=== PATIENT | female | born 1960 ===

== ENCOUNTER 2018-03-15 11:46 | Inpatient (IN) | payer OTHER ==
[2018-03-15] MEDS ORDERED: NALOXONE HYDROCHLORIDE 0.4 MG/ML SOL ONE (11:54)
[2018-03-15] MEDS ORDERED: SODIUM CHLORIDE 0.9% FLUSH 10 ML SOL IV PRN (11:56)
[2018-03-15 12:11] LABS: BASOPHILS % (AUTO) 2 % (0-3); EOSINOPHILS % (AUTO) 2 % (0-9); HEMATOCRIT 44 % (35-47); HEMOGLOBIN 14.5 gm/dl (12.0-15.5); MEAN CORPUSCULAR HEMOGLOBIN 30.7 pg (27.0-32.0); MEAN CORPUSCULAR VOLUME 93 fL (81-99); MONOCYTES % (AUTO) 12.3 % (0-12); NEUTROPHILS % (AUTO) 58.8 % (37-80)
[2018-03-15 12:23] LABS: INR 0.93 (0.86-1.12)
[2018-03-15 12:30] LABS: ALBUMIN 2.6 gm/dl (3.4-5.0); ALKALINE PHOSPHATASE 267 IU/L (46-116); ALT 270 IU/L (14-63); AST 216 IU/L (15-37); BILIRUBIN,DIRECT 0.5 mg/dl (0.0-0.2); BILIRUBIN,TOTAL 1.1 mg/dl (0.2-1.0); BLOOD UREA NITROGEN 15 mg/dl (7-18); CALCIUM 9.6 mg/dl (8.5-10.1); CARBON DIOXIDE 21.8 mEq/L (21-32); CHLORIDE 110 mMol/L (98-107); CREATININE 0.94 mg/dl (0.60-1.00); GLUCOSE 289 mg/dl (74-106); POTASSIUM 4.5 mMol/L (3.5-5.1); SODIUM 143 mMol/L (136-145); TOTAL PROTEIN 7.2 gm/dl (6.4-8.2); TROP I < 0.017 ng/ml (0.000-0.056)
[2018-03-15 12:32] LABS: AMMONIA 179 umol/L (11-32)
[2018-03-15 12:53] LABS: APPEARANCE,URINE Cloudy; BILIRUBIN,URINE NEGATIVE (NEGATIVE); COLOR,URINE Yellow; GLUCOSE, URINE (UA) NEGATIVE (NEGATIVE); KETONES,URINE NEGATIVE (NEGATIVE); LEUKOCYTE ESTERASE ,URINE 2+ (NEGATIVE); NITRATE,URINE NEGATIVE (NEGATIVE); OCCULT BLOOD,URINE NEGATIVE (NEG-TRACE); PH,URINE 7.5
[2018-03-15 13:03] LABS: AMPHETAMINES NEGATIVE (NEGATIVE); BACTERIA 3+ (< 1+); BARBITUATES NEGATIVE (NEGATIVE); BENZODIAZEPINES NEGATIVE (NEGATIVE); CANNABINOL(THC) NEGATIVE (NEGATIVE); COCAINE(COC) NEGATIVE (NEGATIVE); CRYSTALS NEGATIVE (0-3 AVE/HPF); METHADONE NEGATIVE (NEGATIVE); METHAMPHETAMINES NEGATIVE (NEGATIVE); OPIATES(OPI) NEGATIVE (NEGATIVE); OXYCODONE(OXY) NEGATIVE (NEGATIVE); PROPOXYPHENE(PPX) NEGATIVE (NEGATIVE); RBC,URINE 0-3 (0-3AV/HPF); TRICYCLIC ANTIDEPRESSANTS NEGATIVE (NEGATIVE); WBC,URINE 15-20 (0-5AV/HPF)
[2018-03-15] MEDS ORDERED: CEFTRIAXONE 1 GM PDS 1 GM in SODIUM CHLORIDE 0.9% 50 ML 50 ML IV ONE (13:11)
[2018-03-15] MEDS ORDERED: LACTULOSE 10 GM/15 ML SOL ONE (13:12)
[2018-03-15] MEDS ORDERED: CEFTRIAXONE 1 GM PDS ONE (14:00)
[2018-03-15] MEDS ORDERED: SODIUM CHLORIDE 0.9% 50 ML 50 ML IV ONE (14:02)
[2018-03-15] MEDS ORDERED: DEXTROSE PO PRN (14:17)
[2018-03-15] MEDS ORDERED: NOVOLOG FLEXPEN SC PRN (14:17)
[2018-03-15] MEDS ORDERED: ALUMINUM/MAGNESIUM 30 ML SUS PO PRN (14:17)
[2018-03-15] MEDS ORDERED: ALBUTEROL HFA 60 PUFF/INHALER INH PRN (14:17)
[2018-03-15] MEDS ORDERED: [UNRECOGNIZED DRUG - OTHER] PO PRN (14:17)
[2018-03-15] MEDS ORDERED: PATIENT EDUCATION 1 MISC PRN (14:22)
[2018-03-15] MEDS: LACTATED RINGERS 1,000 ML IV SCH (14:40)
[2018-03-15] MEDS ORDERED: INSULIN GLARGINE, RECOMBINAN 100 U/ML SOL SC SCH ×2 (16:00→20:00)
[2018-03-15] MEDS: ACETAMINOPHEN 500 MG 500 MG TAB PO PRN (16:42)
[2018-03-15] MEDS: ENOXAPARIN 30 MG SOL SC SCH (18:31)
[2018-03-15] MEDS: FERROUS GLUCONATE 324 MG TABLET PO SCH (20:47)
[2018-03-15] MEDS: MAGNESIUM OXIDE 400 MG TAB PO SCH (20:47)
[2018-03-15] MEDS: MIRTAZAPINE 15 MG TAB PO SCH (20:48)
[2018-03-15] MEDS ORDERED: FERROUS SULFATE 325 MG PO SCH (21:00)
[2018-03-15] MEDS ORDERED: LACTULOSE 10 GM/15 ML SOL PO SCH (21:00)
[2018-03-15] MEDS: LACTULOSE 10 GM/15 ML SOL PO SCH ×2 (21:34→22:01)
[2018-03-15] MEDS: RIFAXIMIN 550 MG TAB PO SCH (21:59)
[2018-03-15] MEDS: PROPRANOLOL HYDROCHLORIDE 20 MG TAB PO SCH (21:59)
[2018-03-15] MEDS ORDERED: KETOROLAC TROMETHAMINE 30 MG/ML SOL IV PRN (23:14)
[2018-03-16] MEDS: LACTATED RINGERS 1,000 ML IV SCH ×3 (00:41→20:49)
[2018-03-16] MEDS: ENOXAPARIN 30 MG SOL SC SCH ×2 (06:35→17:18)
[2018-03-16] MEDS ORDERED: OMEPRAZOLE 20 MG CAPSULE PO SCH (07:00)
[2018-03-16] MEDS ORDERED: CIPROFLOXACIN HCL 500 MG TAB PO SCH (07:15)
[2018-03-16 07:23] LABS: BASOPHILS % (AUTO) 2 % (0-3); EOSINOPHILS % (AUTO) 2 % (0-9); HEMATOCRIT 41 % (35-47); HEMOGLOBIN 13.5 gm/dl (12.0-15.5); MEAN CORPUSCULAR HEMOGLOBIN 30.8 pg (27.0-32.0); MEAN CORPUSCULAR HGB CONC 33.1 gm/dl (32.0-36.0); MEAN CORPUSCULAR VOLUME 93 fL (81-99); MONOCYTES % (AUTO) 8.8 % (0-12); NEUTROPHILS % (AUTO) 53.7 % (37-80)
[2018-03-16 07:26] LABS: ALBUMIN 2.4 gm/dl (3.4-5.0); BILIRUBIN,TOTAL 1.1 mg/dl (0.2-1.0); CALCIUM 9.1 mg/dl (8.5-10.1); CARBON DIOXIDE 21.7 mEq/L (21-32); CREATININE 0.96 mg/dl (0.60-1.00); POTASSIUM 4.1 mMol/L (3.5-5.1); TOTAL PROTEIN 6.5 gm/dl (6.4-8.2)
[2018-03-16] MEDS: INSULIN GLARGINE, RECOMBINAN 100 U/ML SOL SC SCH (08:21)
[2018-03-16] MEDS ORDERED: INSULIN GLARGINE, RECOMBINAN 100 U/ML SOL SC ONE (08:50)
[2018-03-16] MEDS: CIPROFLOXACIN HCL 500 MG TAB PO SCH ×2 (08:53→20:51)
[2018-03-16] MEDS: ASPIRIN EC 81 MG PO SCH (08:53)
[2018-03-16] MEDS: FERROUS GLUCONATE 324 MG TABLET PO SCH ×2 (08:54→20:53)
[2018-03-16] MEDS: FOLIC ACID 1 MG TAB PO SCH (08:54)
[2018-03-16] MEDS: PROPRANOLOL HYDROCHLORIDE 20 MG TAB PO SCH (08:54)
[2018-03-16] MEDS: FUROSEMIDE 40 MG TAB PO SCH (08:55)
[2018-03-16] MEDS: PAROXETINE HYDROCHLORIDE 20 MG TAB PO SCH (08:55)
[2018-03-16] MEDS: MAGNESIUM OXIDE 400 MG TAB PO SCH ×2 (08:55→20:52)
[2018-03-16] MEDS: PANTOPRAZOLE SODIUM 40 MG ECT PO SCH (08:56)
[2018-03-16] MEDS: THIAMINE 100 MG TAB PO SCH (08:56)
[2018-03-16] MEDS: MULTIVITAMIN2 1 EA TAB PO SCH (08:56)
[2018-03-16] MEDS: CHOLECALCIFEROL 1,000 IU TAB PO SCH (08:56)
[2018-03-16] MEDS ORDERED: SPIRONOLACTONE 100 MG TAB PO SCH (09:00)
[2018-03-16] MEDS ORDERED: DEXTROSE PO PRN (09:00)
[2018-03-16] MEDS ORDERED: CHOLECALCIFEROL 5000 UNIT PO SCH (09:00)
[2018-03-16] MEDS: PROPRANOLOL HCL 10 MG TABLET PO SCH ×2 (10:25→20:53)
[2018-03-16] MEDS: SPIRONOLACTONE 25 MG TAB PO SCH (10:27)
[2018-03-16] MEDS: ACETAMINOPHEN 500 MG 500 MG TAB PO PRN ×2 (10:29→20:50)
[2018-03-16] MEDS: RIFAXIMIN 550 MG TAB PO SCH ×2 (10:38→20:54)
[2018-03-16] MEDS: LACTULOSE 10 GM/15 ML SOL PO SCH ×4 (10:38→21:03)
[2018-03-16] MEDS ORDERED: INSULIN GLARGINE, RECOMBINAN 100 U/ML SOL SC SCH (12:50)
[2018-03-16] MEDS: NOVOLOG FLEXPEN SC SCH ×2 (17:16→21:11)
[2018-03-16] MEDS: MIRTAZAPINE 15 MG TAB PO SCH (20:54)
[2018-03-17 07:29] LABS: BASOPHILS % (AUTO) 2 % (0-3); EOSINOPHILS % (AUTO) 3 % (0-9); HEMATOCRIT 39 % (35-47); HEMOGLOBIN 12.1 gm/dl (12.0-15.5); LYMPHOCYTES % (AUTO) 43.4 % (10-50); MEAN CORPUSCULAR HEMOGLOBIN 29.8 pg (27.0-32.0); MEAN CORPUSCULAR HGB CONC 31.3 gm/dl (32.0-36.0); MEAN CORPUSCULAR VOLUME 95 fL (81-99); MONOCYTES % (AUTO) 10.3 % (0-12); NEUTROPHILS % (AUTO) 41.2 % (37-80)
[2018-03-17 07:46] VITALS: BP 151/81; PULSE 59; RESP 16; TEMP 98.5; O2SAT 97
[2018-03-17 07:48] LABS: BILIRUBIN,TOTAL 0.8 mg/dl (0.2-1.0); CALCIUM 8.4 mg/dl (8.5-10.1); CARBON DIOXIDE 20.6 mEq/L (21-32); CREATININE 1.01 mg/dl (0.60-1.00); POTASSIUM 4.6 mMol/L (3.5-5.1); TOTAL PROTEIN 5.8 gm/dl (6.4-8.2)
[2018-03-17] MEDS: INSULIN GLARGINE, RECOMBINAN 100 U/ML SOL SC SCH (08:39)
[2018-03-17] MEDS: NOVOLOG FLEXPEN SC SCH (08:43)
[2018-03-17] MEDS: SPIRONOLACTONE 25 MG TAB PO SCH (08:44)
[2018-03-17] MEDS: ASPIRIN EC 81 MG PO SCH (08:44)
[2018-03-17] MEDS: CIPROFLOXACIN HCL 500 MG TAB PO SCH (08:44)
[2018-03-17] MEDS: FUROSEMIDE 40 MG TAB PO SCH (08:45)
[2018-03-17] MEDS: MAGNESIUM OXIDE 400 MG TAB PO SCH (08:45)
[2018-03-17] MEDS: PAROXETINE HYDROCHLORIDE 20 MG TAB PO SCH (08:45)
[2018-03-17] MEDS: FOLIC ACID 1 MG TAB PO SCH (08:45)
[2018-03-17] MEDS: FERROUS GLUCONATE 324 MG TABLET PO SCH (08:45)
[2018-03-17] MEDS: MULTIVITAMIN2 1 EA TAB PO SCH (08:46)
[2018-03-17] MEDS: THIAMINE 100 MG TAB PO SCH (08:46)
[2018-03-17] MEDS: PANTOPRAZOLE SODIUM 40 MG ECT PO SCH (08:46)
[2018-03-17] MEDS: PROPRANOLOL HCL 10 MG TABLET PO SCH (08:46)
[2018-03-17] MEDS: CHOLECALCIFEROL 1,000 IU TAB PO SCH (08:47)
[2018-03-17] MEDS: RIFAXIMIN 550 MG TAB PO SCH (08:47)
[2018-03-17] MEDS: LACTULOSE 10 GM/15 ML SOL PO SCH (08:48)
== END 2018-03-17 12:05 | DRG 442 ==
LOC: ED 11:46 → UNDOADMIN 13:44 → ACUTE CARE 13:44
PROVIDERS: ADMIT Emergency Medicine; ATTEND Emergency Medicine
PROC: F01ZBFZ Bed Mobility Assessment using Assistive, Adaptive, Supportive or Protective Equipment (ICD-10-PCS; principal; 2018-03-16)
DX: K72.90 Hepatic failure, unspecified without coma (principal); N39.0 Urinary tract infection, site not specified; R53.1 Weakness; E11.9 Type 2 diabetes mellitus without complications; Z79.4 Long term (current) use of insulin; R74.8 Abnormal levels of other serum enzymes; Z72.89 Other problems related to lifestyle
CPT/HCPCS: 36415; 70450; 74176; 80048; 80053; 80076; 80305; 81001; 82140; 82962; 83735; 84484; 85025; 85610; 85730; 87077; 87088; 87186; 93005; 99223; 99285; J0696; J1817; J1885; J2310; A9270; A9270-GY; J1650; J1815